=== PATIENT | male | born 1980 | race Caucasian/White ===

== ENCOUNTER 2016-10-04 13:25 | Emergency (ER) | payer OTHER ==
[~2016-10-04] VITALS: Ht 190.5 cm; Wt 132.1 kg
[2016-10-04 13:29] VITALS: BP 148/92; PULSE 82; RESP 18; TEMP 97.7; O2SAT 98
--- NOTE | 2016-10-04 13:50 | PD ---
HPI Chief Complaint: Oral / Dental Pain or Problem Time Seen by Provider: 13:49 Travel History International Travel<30 days: No Contact w/Intl Traveler<30days: No Traveled to known affect area: No History of Present Illness HPI 36-year-old male presents to the ED for evaluation of 8/10 right lower dental pain. The patient states symptoms have been present "for weeks. " He endorses radiation of pain to the right ear. He denies fever, chills, difficulties opening closing the mouth, difficulty swallowing. He states that he saw his dentist was diagnosed with a impacted wisdom tooth, dental abscess and dental caries. He was prescribed a course of clindamycin and Lortab which she states improved the pain. However, he states the pain has worsened over the last 3 days. PFSH Past Medical History Medical History: Denies Significant Hx Diminished Hearing: No Tetanus Vaccination: < 5 Years Influenza Vaccination: No Past Surgical History Surgical History: No Previous Surgery Social History Alcohol Use: Yes Tobacco Use: No Substance Use: No Allergies-Medications (Allergen,Severity, Reaction): Coded Allergies: Penicillin (Verified Allergy, Unknown, unknown as child, 10/04/16) Reported Meds & Prescriptions Reported Meds & Active Scripts Active Cipro (Ciprofloxacin HCl) 500 Mg Tab 500 Mg PO BID 7 Days Metronidazole 500 Mg Tab 500 Mg PO TID 7 Days Ibuprofen 800 Mg Tab 800 Mg PO Q8H Magic Mouthwash Adult Liq (Multi-Ingredient Mouthwash/Gargle) 120 Ml Susp 10 Ml SWISH-SWAL ACHS Each 5mL contains: Nystatin 200,000units, Diphenhydramine 4.25mg, Viscous Lidocaine 10mg, Ortega syrup 0.8 mL Review of Systems Except as stated in HPI: all other systems reviewed are Neg Physical Exam Narrative GENERAL: Well-nourished, well-developed nontoxic appearing white male in no acute distress. SKIN: Warm and dry. HEAD: Normocephalic. Atraumatic. EYES: No scleral icterus. No injection or drainage. PERRLA. EOMI. ENT: Pearly whitaker tympanic membranes bilaterally. Nasal mucosa is moist. Oropharynx without erythema, edema or exudate. Floor the mouth is soft. Uvula midline and airway patent. DENTAL: No loose teeth. No malocclusion. Tooth #32 is impacted. Tooth #31 has a dental caries with the pulp exposed. The surrounding gingiva is tender, erythematous and mildly edematous. No fluctuance noted. NECK: Supple, trachea midline. No JVD or lymphadenopathy. CARDIOVASCULAR: Regular rate and rhythm without murmurs, gallops, or rubs. 2+ DP and radial pulses bilaterally. RESPIRATORY: Breath sounds clear and equal bilaterally. No accessory muscle use. GASTROINTESTINAL: Abdomen soft, non-tender, nondistended. + Bowel sounds MUSCULOSKELETAL: No cyanosis, or edema. Patient is a laboratory moves extremities spontaneously. BACK: Nontender without obvious deformity. No CVA tenderness. Data Data Last Documented VS Vital Signs Date Time Temp Pulse Resp B/P Pulse Ox O2 Delivery O2 Flow Rate FiO2 10/04/16 13:29 97.7 82 18 148/92 98 MDM Medical Decision Making Medical Screen Exam Complete: Yes Emergency Medical Condition: Yes Differential Diagnosis Dental abscess versus dental caries versus dentalgia versus deep space infection of the neck versus other Narrative Course 36-year-old male presents to the ED for evaluation of 8/10 right lower dental pain. The patient states symptoms have been present "for weeks. " He endorses radiation of pain to the right ear. He denies fever, chills, difficulties opening closing the mouth, difficulty swallowing. He states that he saw his dentist was diagnosed with a impacted wisdom tooth, dental abscess and dental caries. He was prescribed a course of clindamycin and Lortab which she states improved the pain. However, he states the pain has worsened over the last 3 days. Patient is a current smoker. Vitals reviewed. Physical exam reveals a nontoxic-appearing white male in no acute distress. ENT exam is unremarkable. Tooth #32 is impacted. Tooth #31 has a dental caries with the pulp exposed. The surrounding gingiva is tender, erythematous, mildly edematous. No fluctuance noted. Floor of the mouth is soft. The uvula is midline. The airway is patent. No anterior cervical lymphadenopathy noted. Patient endorses allergy to penicillin. He is prescribed 800milligram ibuprofen 3 times a day, when necessary Magic mouthwash, 500 mg Cipro twice a day 7 days and 500 mg metronidazole 3 times a day 7 days. He is instructed to take the medication as prescribed, follow up with the dentist. He indicated understanding of the instructions and is agreeable to the care plan. The patient is stable and discharged home. Diagnosis Primary Impression: Dental caries Additional Impressions: Dentalgia Dental abscess Referrals: Dentist Patient Instructions: Dental Abscess (ED), Dental Caries (ED), General Instructions Additional Instructions: Rest, hydrate. Take all antibiotics as prescribed, even if symptoms resolve during the course of treatment. Magic mouthwash as needed for dental pain. 800 mg ibuprofen 3 times a day to reduce pain and inflammation. Follow-up with a dentist. Return to the ED for any urgent or emergent medical condition. Med/Other Pt SpecificInfo: Prescription(s) given Scripts Ciprofloxacin (Cipro)500 Mg Sen442 Mg PO BID 7 Days Ref 0 Prov:Ramon Ferrer MD 10/04/16 Metronidazole 500 Mg Vas618 Mg PO TID 7 Days Ref 0 Prov:Ramon Ferrer MD 10/04/16 Ibuprofen 800 Mg Adt874 Mg PO Q8H #20 TAB Ref 0 Prov:Ramon Ferrer MD 10/04/16 Gkdnidtj-Uctctldksrrsvkr-Ejldwjqaf Liq (Magic Mouthwash Adult Liq)120 Ml Susp10 Ml SWISH-SWAL ACHS #120 ML Ref 0 Each 5mL contains: Nystatin 200,000units, Diphenhydramine 4.25mg, Viscous Lidocaine 10mg, Ortega syrup 0.8 mL Prov:Ramon Ferrer MD 10/04/16 Disposition: 01 DISCHARGE HOME Condition: Stable Rhea Leger Oct 04, 2016 13:49
[2016-10-04] MEDS ORDERED: PENI500T PO (14:02)
[2016-10-04] MEDS ORDERED: IBUP800T23 PO (14:02)
[2016-10-04] MEDS ORDERED: MAGICADU2 SWISH-SWAL (14:02)
[2016-10-04] MEDS ORDERED: CIPR-9 PO (14:08)
[2016-10-04] MEDS ORDERED: METR500T10 PO (14:08)
== END 2016-10-04 14:13 | disposition home or self-care (01) ==
LOC: PHEFT 13:25
DX: K04.7 Periapical abscess without sinus (principal); K08.89 Other specified disorders of teeth and supporting structures; K02.9 Dental caries, unspecified
CPT/HCPCS: 99282